=== PATIENT | female | born 1970 | race Caucasian/White ===

== ENCOUNTER 2025-05-19 10:50 | Outpatient (CLI) | payer BC, SELFPAY | END 2025-05-19 23:59 | disposition home or self-care (01) | PROVIDERS: Visit Provider Nurse Practitioner | DX: R30.9 Painful micturition, unspecified (principal) | CPT/HCPCS: 87086; 87088; 87186 ==

== ENCOUNTER 2025-06-17 10:21 | Outpatient (CLI) | payer BC, SELFPAY ==
[2025-06-17 14:47] LABS: Coronavirus 19, PCR Not Detected (NotDetected); Influenza A, PCR Not Detected (NotDetected); Influenza B, PCR Not Detected (NotDetected)
== END 2025-06-17 23:59 | disposition home or self-care (01) ==
LOC: LAB.DROPOF 06-18 12:17
PROVIDERS: PCP Nurse Practitioner Family; Visit Provider Nurse Practitioner Family
DX: J06.9 Acute upper respiratory infection, unspecified (principal); J02.9 Acute pharyngitis, unspecified; R35.0 Frequency of micturition
CPT/HCPCS: 87086; 87088; 87186; 87631